=== PATIENT | male | born 1975 | race Caucasian/White ===

== ENCOUNTER 2022-02-06 09:20 | Emergency (ER) | payer BC ==
[2022-02-06 09:41] VITALS: O2SAT 99
[2022-02-06] MEDS ORDERED: Sodium Chloride 0.9% 1000 ML 1,000 ML IV STA (09:43)
[2022-02-06] MEDS ORDERED: BENADRYL 50 MG/ML IV ONE (09:43)
[2022-02-06] MEDS ORDERED: BABY ASPIRIN 81 MG CHEW PO ONE (09:43)
[2022-02-06] MEDS ORDERED: Sodium Chloride 0.9% 1000 ML 1,000 ML ONE (09:56)
[2022-02-06] MEDS ORDERED: BABY ASPIRIN 81 MG CHEW ONE (09:56)
[2022-02-06] MEDS ORDERED: BENADRYL 50 MG/ML ONE (09:56)
[2022-02-06 09:58] LABS: Absolute Neutrophil Ct (ANC) 4.69 x10^3/uL (1.4-6.9); Basophil (Absolute #) 0.04 x10^3/uL (0-0.4); Eosinophil (Absolute #) 0.07 x10^3/uL (0-0.5); Hematocrit 48.2 % (42-50); Hemoglobin 16.7 g/dL (12.5-18.0); Lymphocyte (Absolute #) 1.54 x10^3/uL (1.0-4.6); Lymphocytes % 21.1 % (24.0-44.0); Mean Cell Volume 85.6 fL (78-100); Mean Corpuscular Hemoglobin 29.7 pg (26-32); Mean Corpuscular Hgb Concent. 34.6 g/dL (32-36); Mean Platelet Volume 9.3 fL (7.5-11.0); Monocyte (Absolute #) 0.94 x10^3/uL (0.0-1.3); Monocytes % 12.9 % (0.0-12.0); Neutrophil % 64.2 % (36.0-66.0); Platelet Count 294 x10^3/uL (150-450); Red Blood Count 5.63 x10^6/uL (4.1-5.6); Red Cell Distribution Width 11.1 % (11.5-14.0); White Blood Count 7.3 x10^3/uL (4.0-10.5)
--- NOTE | 2022-02-06 09:59 | ERPHSYRPT ---
- History of Present Illness Time Seen by Provider: 02/06/22 09:29 Historian: patient Exam Limitations: no limitations Patient Subjective Stated Complaint: C/O chest pain in "my pectorial area" that has been going of "for weeks" Triage Nursing Assessment: Patient ambulated back to ED without difficulties. No SOB. Skin warm and dry; not diaphoretic. Patient anxious and talking rapidly. Physician History: Patient states he is here for chest pain, anxiety, inability to sleep. Patient states that he has been struggling with anxiety severely for about 2 weeks. Previously was on Xanax. Has had increased sleeplessness. No other falls or trauma. Patient states his PCP has been out of the country. He does have PCP follow-up in 2 days. He has been taking home Xanax. Patient is on Prozac. This was started 3 weeks ago. He is on a low 20 mg dose. He denies any active suicidal or homicidal ideation. States that his anxiety was so bad this week that he went home. Timing/Duration: week(s) Activities at Onset: activity Quality: aching, other (Associated with anxiety) Location: central Chest Pain Radiation: no radiation Severity of Pain-Max: mild Severity of Pain-Current: mild Modifying Factors: Improves With: other (Associated with anxiety, sleeplessness) Associated Symptoms: nausea Aspirin Treatment Today: no aspirin today Allergies/Adverse Reactions: amoxicillin Allergy (Verified 02/06/22 09:27) Home Medications: Insulin Glargine,Hum.rec.anlog [Basaglar Kwikpen U-100] 25 units SQ DAILY 01/26 06/19 [History] Lisinopril 20 mg [Zestril 20 MG] 1 tab PO BID 02/06/22 [History] Torsemide 20 mg [Demadex 20 mg] 1 tab PO DAILY 02/06/22 [History] Hx Tetanus, Diphtheria Vaccination/Date Given: Yes Hx Influenza Vaccination/Date Given: No Hx Pneumococcal Vaccination/Date Given: No Immunizations Up to Date: Yes Travel Risk - International Travel Have you traveled outside of the country in past 3 weeks: No - Coronavirus Screening Are you exhibiting any of the following symptoms?: No - Vaccine Status Have you recieved a Covid-19 vaccination: Yes [place]: [employer] - Vaccination Dates Date of 2cond Vaccination (if applicable): 2020 - Review of Systems Constitutional: No Fever, No Chills Eyes: No Symptoms Ears, Nose, & Throat: No Symptoms Respiratory: No Cough, No Dyspnea Cardiac: Chest Pain, No Edema, No Syncope Abdominal/Gastrointestinal: No Abdominal Pain, No Nausea, No Vomiting, No Diarrhea Genitourinary Symptoms: No Dysuria Musculoskeletal: No Back Pain, No Neck Pain Skin: No Rash Neurological: No Dizziness, No Focal Weakness, No Sensory Changes Psychological: No Symptoms, Anxiety Endocrine: No Symptoms All Other Systems: Reviewed and Negative - Past Medical History Pertinent Past Medical History: Yes ENT History: Other Cardiac History: Aneurysm, Hypertension Endocrine Medical History: Diabetes Type II Psycho-Social History: Anxiety, Depression Other Medical History: DIABETIC RETINOPATHY, BELLS PALSY, MAJOR ANXIETY WITH PANIC ATTACKS, INSOMNIA - Past Surgical History Past Surgical History: Yes Musculoskeletal: Other Other Surgical History: KNEE - Social History Smoking Status: Never smoker Exposure to second hand smoke: No Drug Use: none Patient Lives Alone: No - Nursing Vital Signs Nursing Vital Signs: Initial Vital Signs Temperature 97 F 02/06/22 09:29 Pulse Rate 76 02/06/22 09:29 Respiratory Rate 22 02/06/22 09:29 Blood Pressure 154/113 02/06/22 09:29 O2 Sat by Pulse Oximetry 99 02/06/22 09:29 Pain Scale Pain Intensity 0 - Physical Exam General Appearance: no apparent distress, alert Eye Exam: PERRL/EOMI, eyes nml inspection Ears, Nose, Throat Exam: normal ENT inspection, moist mucous membranes Neck Exam: normal inspection, non-tender, supple, full range of motion Respiratory Exam: normal breath sounds, lungs clear, No respiratory distress Cardiovascular Exam: regular rate/rhythm, normal heart sounds Gastrointestinal/Abdomen Exam: soft, No tenderness, No mass Back Exam: normal inspection, No CVA tenderness, No vertebral tenderness Extremity Exam: normal inspection, normal range of motion Neurologic Exam: alert, oriented x 3, cooperative, normal mood/affect, sensation nml, No motor deficits Skin Exam: normal color, warm, dry SpO2: 99 - Course Nursing assessment & vital signs reviewed: Yes EKG Interpreted by Me: Sinus Rhythm Ordered Tests: Active Orders 24 hr Category Date Time Status Optical Advisor STAT Care 02/06/22 09:44 Active EKG-ER Only STAT Care 02/06/22 09:43 Active IV Insertion STAT Care 02/06/22 09:43 Active CHEST 2 VIEWS (PA AND LAT) Stat Exams 02/06/22 09:44 Completed CBC W DIFF Stat Lab 02/06/22 09:54 Completed CMP Stat Lab 02/06/22 09:54 Completed NT PRO BNP Stat Lab 02/06/22 09:54 Completed TROPONIN Q4H Lab 02/06/22 09:54 Completed TROPONIN Q4H Lab 02/06/22 13:45 Ordered TROPONIN Q4H Lab 02/06/22 17:45 Ordered Medication Summary Discontinued Medications Generic Name Dose Route Start Last Admin Trade Name Erika PRN Reason Stop Dose Admin Aspirin 324 mg 02/06/22 09:43 02/06/22 10:01 Aspirin 81 Mg Tab.Chew PO 02/06/22 09:44 324 mg STAT ONE Administration Aspirin Confirm 02/06/22 09:56 Aspirin 81 Mg Tab.Chew Administered 02/06/22 09:57 Dose 324 mg .ROUTE .STK-MED ONE Diphenhydramine HCl 25 mg 02/06/22 09:43 02/06/22 10:09 Diphenhydramine Hcl 50 Mg/Ml Vial IV 02/06/22 09:44 25 mg STAT ONE Administration Diphenhydramine HCl Confirm 02/06/22 09:56 Diphenhydramine Hcl 50 Mg/Ml Vial Administered 02/06/22 09:57 Dose 50 mg .ROUTE .STK-MED ONE Droperidol 1.25 mg 02/06/22 09:43 02/06/22 10:09 Droperidol 5 Mg/2 Ml Vial IV 02/06/22 09:44 1.25 mg STAT ONE Administration Droperidol Confirm 02/06/22 09:56 Droperidol 5 Mg/2 Ml Vial Administered 02/06/22 09:57 Dose 5 mg .ROUTE .STK-MED ONE Sodium Chloride 1,000 mls @ 999 mls/hr 02/06/22 09:43 02/06/22 10:02 Sodium Chloride 0.9% 1000 Ml IV 02/06/22 10:43 999 mls/hr .Q1H1M STA Administration Sodium Chloride Confirm 02/06/22 09:56 Sodium Chloride 0.9% 1000 Ml Administered 02/06/22 09:57 Dose 1,000 mls @ ud .ROUTE .STK-MED ONE Lab/Rad Data: Laboratory Result Diagrams 02/06/22 09:54 02/06/22 09:54 Laboratory Results 02/06/22 02/06/22 02/06/22 Range/Units 09:54 09:54 09:54 WBC 7.3 (4.0-10.5) x10^3/uL RBC 5.63 H (4.1-5.6) x10^6/uL Hgb 16.7 (12.5-18.0) g/dL Hct 48.2 (42-50) % MCV 85.6 (78-100) fL MCH 29.7 (26-32) pg MCHC 34.6 (32-36) g/dL RDW 11.1 L (11.5-14.0) % Plt Count 294 (150-450) x10^3/uL MPV 9.3 (7.5-11.0) fL Gran % 64.2 (36.0-66.0) % Immature Gran % (Auto) 0.3 (0.00-0.4) % Nucleat RBC Rel Count 0.0 (0.00-0.1) % Eos # (Auto) 0.07 (0-0.5) x10^3/uL Immature Gran # (Auto) 0.02 (0.00-0.03) x10^3u/L Absolute Lymphs (auto) 1.54 (1.0-4.6) x10^3/uL Absolute Monos (auto) 0.94 (0.0-1.3) x10^3/uL Absolute Nucleated RBC 0.00 (0.00-0.01) x10^3u/L Lymphocytes % 21.1 L (24.0-44.0) % Monocytes % 12.9 H (0.0-12.0) % Eosinophils % 1.0 (0.00-5.0) % Basophils % 0.5 (0.0-0.4) % Absolute Granulocytes 4.69 (1.4-6.9) x10^3/uL Basophils # 0.04 (0-0.4) x10^3/uL Sodium 129 L (137-145) mmol/L Potassium 4.4 (3.5-5.1) mmol/L Chloride 89 L (98-107) mmol/L Carbon Dioxide 28 (22-30) mmol/L Anion Gap 16.4 H (5-15) MEQ/L BUN 13 (9-20) mg/dL Creatinine 1.03 (0.66-1.25) mg/dL Estimated GFR > 60.0 ML/MIN Glucose 243 H (74-106) mg/dL Calcium 9.0 (8.4-10.2) mg/dL Total Bilirubin 0.80 (0.2-1.3) mg/dL AST 34 (17-59) U/L ALT 41 (0-50) U/L Alkaline Phosphatase 87 (38-126) U/L Troponin I < 0.012 (0.000-0.034) ng/mL NT-Pro-B Natriuret Pep 30.9 (0-450) pg/mL Serum Total Protein 7.4 (6.3-8.2) g/dL Albumin 4.8 (3.5-5.0) g/dL - Progress Progress: improved Air Movement: good Progress Note: 02/06/22 09:58 We will obtain basic labs, EKG, troponin, chest x-ray. We will treat patient's nausea and restlessness with droperidol and Benadryl. Plan for IV fluids, close CR monitoring. 02/06/22 11:11 - We'll obtain basic labs, fluids, EKG, troponin, chest x-ray - I feel comfortable with one time negative troponin given symptoms have improved and started greater then 6 hours ago. - EKG shows no ST changes - my read. See full read below. - O2 saturations consistently greater than 95%. - CXR shows no pneumonia, pneumothorax - my read -Patient's glucose was 249. Sodium 129. Otherwise normal exam. Per the patient had a negative stress test in August. Incidentally patient did have a thoracic aortic aneurysm at 4.5 cm per the . I did ask them if they wanted a CT scan of this today. They did decline. Patient states he does not have any ripping, tearing chest pain radiating into his back. Patient's BP has poorly normalized in the emergency department without intervention. Given all this less likely to be aortic dissection. Plan of care was discussed with patient and patient's family: all questions answered. They are agreeable to be discharged home and both verbal and printed discharge instructions were provided. The patient and patient's family agreed to seek outpatient follow up as discussed. They were given strict instructions to return to the emergency department for worsening symptoms or any other emergent concerns. They verbalized understanding. - Departure Departure Disposition: Home Clinical Impression: Atypical chest pain Condition: Stable Critical Care Time: No Referrals: SHELTON LARRY MD [Primary Care Provider] - Follow up/PCP as directed Instructions: Chest Pain (DC)
--- NOTE | 2022-02-06 10:07 | XRAY ---
Indication: Nausea. Hypertension. Diabetes. Comparison: None PA/lateral chest demonstrates normal heart and lungs. Bony thorax intact with minimal degenerative changes.
[2022-02-06 10:33] LABS: ALBUMIN 4.8 g/dL (3.5-5.0); ALKALINE PHOSPHATASE 87 U/L (38-126); ANION GAP 16.4 MEQ/L (5-15); BLOOD UREA NITROGEN 13 mg/dL (9-20); CHLORIDE 89 mmol/L (98-107); Carbon Dioxide 28 mmol/L (22-30); Creatinine 1 1.03 mg/dL (0.66-1.25); EST GLOMERULAR FILTRATION RATE > 60.0 ML/MIN; Glucose 243 mg/dL (74-106); NT PRO BNP 30.9 pg/mL (0-450); Potassium 4.4 mmol/L (3.5-5.1); SGOT/AST 34 U/L (17-59); SGPT/ALT 41 U/L (0-50); SODIUM 129 mmol/L (137-145); Total Protein 7.4 g/dL (6.3-8.2)
[2022-02-06 11:03] VITALS: BP 140/90
[2022-02-06 11:28] VITALS: PULSE 73
== END 2022-02-06 11:29 | disposition home or self-care (01) ==
LOC: ED 09:20
DX: R07.89 Other chest pain (principal); F41.9 Anxiety disorder, unspecified; G47.00 Insomnia, unspecified; I10 Essential (primary) hypertension; E11.9 Type 2 diabetes mellitus without complications; Z79.4 Long term (current) use of insulin; Z79.899 Other long term (current) drug therapy
CPT/HCPCS: 36000; 36415; 71046; 80053; 83880; 84484; 85025; 93005; 93041; 96374; 96375; 99284; J1200; A9270-GY